=== PATIENT | female | born 1975 | race Caucasian/White ===

== ENCOUNTER 2021-03-07 18:54 | Emergency (ER) | payer OTHER ==
[~2021-03-07] VITALS: Ht 177.8 cm; Wt 136.1 kg
[~2021-03-07 18:54] MED LIST: DOXY100T53 PO; Flomax0.4 MG PO; HUMERA; KETO10 PO; LISI20 PO; LOVA40 PO; METO25 PO; METO25ER; METTREX2.5; Norco 5-325 Ta1 EACH PO; Roxicodone5 MG PO; Zofran Odt4 MG PO; Zofran8 MG PO
[2021-03-07] MEDS ORDERED: ZOCOR20 MG PO (22:29)
[2021-03-07] MEDS ORDERED: POTCHL20ER PO (22:30)
[2021-03-07] MEDS ORDERED: LISINOPRIL-HCT1 EACH PO (22:30)
[2021-03-07] MEDS ORDERED: Voltaren100 GM TOP (22:45)
== END 2021-03-07 23:05 | disposition home or self-care (01) ==
LOC: ER 18:54
DX: M25.461 Effusion, right knee (principal); L40.50 Arthropathic psoriasis, unspecified; E11.9 Type 2 diabetes mellitus without complications; I10 Essential (primary) hypertension; Z79.899 Other long term (current) drug therapy
CPT/HCPCS: 93971; 99284-25